=== PATIENT | male | born 1995 | race Caucasian/White ===

== ENCOUNTER 2025-05-28 11:54 | Emergency (ER) | payer MEDICARE, OTHER, SELFPAY ==
[2025-05-28 12:07] VITALS: BP 109/78
--- NOTE | 2025-05-28 14:02 | ED.GENMED ---
History of Present Illness
General
Chief Complaint: Crisis Evaluation
Source: patient
Time Seen by Provider: 05/28/25 13:14
History of Present Illness
History of Present Illness:
29-year-old male presenting to the emergency department after his therapist reportedly is filing a 302. Patient states he does not know why the therapist is filing a 302. He denies any SI, HI, auditory visual loose nations. He denies any alcohol
use but does state he last used heroin 2 days ago for the second time, notes that he is smoking heroin. No physical concerns presently.
Past History
Past History
ED Past Medical History: Psychiatric
ED Past Surgical History: None
Social History
Tobacco: Non-smoker
Alcohol: None
Drug: Narcotics
Personal: Single
Living: with family
Review of Systems
Review of Systems
All Other Systems: ROS reviewed and negative except as documented in HPI and ROS
Phy Exam
Physical Exam
Physical Exam:
GENERAL: Alert , in no apparent distress, loud speech, boisterous, appears somewhat manic
EYE: conjunctiva clear
Head: Normocephalic atraumatic
NECK: Supple,
ENT: mmm.
LUNGS: no acute respiratory distress
NEUROLOGICAL: Alert and oriented
SKIN: Warm and dry, skin intact.
MUSCULOSKELETAL: well perfused.
PSYCH: Normal and appropriate interaction.
Scores
Heart Failure Risk
Heart Failure Risk Score: Not Applicable
Heart Score for Chest Pain Patients
STEMI patient?: Not applicable
Withdrawal Assessment of Alcohol
Withdrawal Assessment Completed?: Not applicable
Course
Orders/Labs/Results
Orders:
Orders
05/28/25 13:35
Crisis Consult Urgent
Reason for Consult: therapist filing 302
05/28/25 14:17
Urine Drug Abuse Screen Urgent
Date Specimen was Collected: 05/28/25
Time Specimen was Collected: 14:10
Vital Signs
Initial and Last Documented VS:
Initial Vital Signs
Temp Pulse Resp BP Pulse Ox
97.7 F 74 18 109/78 100
05/28/25 12:07 05/28/25 12:07 05/28/25 12:07 05/28/25 12:07 05/28/25 12:07
Last Documented Vital Signs
Temp Pulse Resp BP Pulse Ox
97.7 F 74 18 109/78 100
05/28/25 12:07 05/28/25 12:07 05/28/25 12:07 05/28/25 12:07 05/28/25 14:05
MDM/Problems Addressed
Differential Diagnosis Includes:
Substance abuse/withdrawal
Nora
Depression
MDM/Problems Addressed:
29-year-old male presents the ER after therapist is reportedly filing a 302. Patient not sure why. Will have crisis evaluate the patient. UDS sent. Disposition pending
Chronic conditions affecting care: Psychiatric illness
Acute Exacerbation and/or Progression of Chronic Illness: Psychiatric illness
*Pulse Oximetry
SaO2: 100
Oxygen Mode of Delivery: Room air
Patient hypoxic: no
*Critical Care Note
Total Time (30-74mins, 75-104mins- exclusive of procedures): Not Applicable
Patient Management
Escalation/DeEscalation of care consider admission/obs:
Patient's 302 was denied by the delegate. I discussed the case with crisis and at this time there is no concern for any need for patient to go inpatient. UDS negative. Stable for discharge home. Patient provided with outpatient follow-up
information
ED Attending Note
-
Portions of this chart may have been created with voice recognition software.� Occasional wrong word or��sound alike� substitutions may have occurred due to the inherent limitations of voice recognition software.
Discharge Plan
Departure
Patient Disposition: Home (Routine Discharge)
Date of Disposition: 05/28/25
Time of Disposition: 15:39
Patient with high blood pressure during this ER visit?: No
Discharge Problem:
Substance abuse
Instructions: Drug and Alcohol Abuse Information
Interventions
Interventions:
*General Assessment Last Done: 05/28/25 12:09
*Neglect/Abuse Screening Last Done: 05/28/25 12:09
*ED COVID-19 Vaccine History Last Done: 05/28/25 12:09
*ED Influenza Vaccine History Last Done: 05/28/25 12:09
*Risk Screen - Suicide (C-SSRS) Last Done: 05/28/25 12:09
Discharge Date and Time
Print Language: DIVEHI
== END 2025-05-28 15:47 | disposition home or self-care (01) ==
LOC: EMR 11:54
PROVIDERS: Physician Assistant Medical; EMERGENCY PHYSICIAN Emergency Medicine
DX: F19.10 Other psychoactive substance abuse, uncomplicated (principal)
CPT/HCPCS: 99283; 80306